=== PATIENT | male | born 1945 | race Caucasian/White ===

== ENCOUNTER → 2016-09-10 | Outpatient (CLI) | payer MEDICARE, OTHER | LOC: HEART 5 09:49 | DX: R06.02 Shortness of breath (principal); G47.33 Obstructive sleep apnea (adult) (pediatric); F17.210 Nicotine dependence, cigarettes, uncomplicated; R94.2 Abnormal results of pulmonary function studies | CPT/HCPCS: 94060; 94729 ==

== ENCOUNTER → 2016-09-12 | Outpatient (CLI) | payer MEDICARE, OTHER | LOC: RT 10:18 | DX: R06.02 Shortness of breath (principal); R91.8 Other nonspecific abnormal finding of lung field | CPT/HCPCS: 36600; 71020; 82803 ==

== ENCOUNTER → 2020-08-13 | Outpatient (CLI) | payer MEDICARE | LOC: KOH-I 08:55 | DX: G89.29 Other chronic pain (principal); M25.532 Pain in left wrist; M19.042 Primary osteoarthritis, left hand | CPT/HCPCS: 73221 ==